=== PATIENT | female | born 1955 | race Caucasian/White ===

== ENCOUNTER 2019-01-23 08:46 | Day surgery (SDC) | payer OTHER ==
[~2019-01-23] VITALS: Ht 170.2 cm; Wt 89.9 kg
[2019-01-23] MEDS ORDERED: SODIUM CHLORIDE 0.9% 1,000 ML IV SCH (09:13)
[2019-01-23] MEDS ORDERED: CARI250T PO (09:18)
[2019-01-23] MEDS ORDERED: HYDR-3237 PO (09:18)
[2019-01-23] MEDS ORDERED: METH750T2 PO (09:19)
[2019-01-23] MEDS ORDERED: ASPI1TAB31 PO (09:19)
[2019-01-23 09:25] VITALS: BP 140/87
[2019-01-23] MEDS ORDERED: PLEASE ENTER HEIGHT AND WEIGHT MC SCH (10:00)
[2019-01-23] MEDS ORDERED: LIDOCAINE-MPF 1%, 5ML ONE (12:08)
== END 2019-01-23 16:00 | disposition home or self-care (01) ==
LOC: OUT 08:46 → EDSTATUS 12:30 → OUT 16:00
PROVIDERS: ATTEND Neurological Surgery
DX: M48.061 Spinal stenosis, lumbar region without neurogenic claudication (principal); F17.210 Nicotine dependence, cigarettes, uncomplicated; Z88.6 Allergy status to analgesic agent
CPT/HCPCS: 62284; 72050; 72110; 72132; J7030; Q9965

== ENCOUNTER 2019-01-30 08:30 | Inpatient (IN) | payer OTHER ==
[~2019-01-30] VITALS: Ht 170.2 cm; Wt 99.7 kg
[~2019-01-30 08:30] MED LIST: ASPI1TAB31 PO; CARI250T PO; HYDR-3237 PO; METH750T2 PO
[2019-01-30 09:04] LABS: BASOPHILS # (AUTO) 0.09 x10^3/uL (0-0.1); BASOPHILS % (AUTO) 1 % (0-1); EOSINOPHILS # (AUTO) 0.29 x10^3/uL (0-0.4); EOSINOPHILS % (AUTO) 4 % (1-7); LYMPHOCYTES # (AUTO) 2.75 x10^3/uL (1-3.4); LYMPHOCYTES % (AUTO) 36 % (22-44); MD NO; MEAN CORPUSCULAR HEMOGLOBIN 27.3 pg (27.0-34.8); MEAN CORPUSCULAR HGB CONC 32.3 g/dL (32.4-35.8); MEAN CORPUSCULAR VOLUME 84.6 fL (80-100); MEAN PLATELET VOLUME 10.1 fL (7.4-10.4); MONOCYTES # (AUTO) 0.73 x10^3/uL (0.2-0.8); MONOCYTES % (AUTO) 10 % (2-9); NEUTROPHILS # (AUTO) 3.79 x10^3/uL (1.8-6.8); NEUTROPHILS % (AUTO) 50 % (42-75); PLATELET COUNT 240 x10^3/uL (130-400); RED CELL DISTRIBUTION WIDTH 14.3 % (9.6-15.2)
[2019-01-30 09:12] LABS: INTERNATIONAL NORMALIZED RATIO 1.02 (0.93-1.1); PROTHROMBIN TIME 10.7 Seconds (9.6-11.5)
[2019-01-30 09:13] LABS: ANION GAP 6 mmol/L (5-15); CALCIUM 9.1 mg/dL (8.5-10.1); CHLORIDE 110 mmol/L (98-107); CREATININE 0.79 mg/dL (0.55-1.02)
[2019-01-30 09:24] VITALS: BP 137/91
[2019-02-01] MEDS ORDERED: LACTATED RINGERS 1,000 ML IV SCH (06:54)
[2019-02-01] MEDS ORDERED: GABAPENTIN 300 MG CAPSULE PO ONE (07:00)
[2019-02-01] MEDS ORDERED: ACETAMINOPHEN 500 MG TABLET PO ONE (07:00)
[2019-02-01] MEDS ORDERED: ONDANSETRON ODT 8 MG PO ONE (07:00)
[2019-02-01] MEDS ORDERED: LIDOCAINE-MPF 1%, 2ML INFIL ONE (07:30)
[2019-02-01] MEDS ORDERED: BUPIVACAINE/EPI 0.5% 1:200K ONE (07:47)
[2019-02-01] MEDS ORDERED: MICROFIBRILLAR COLLAGEN 1 GM TP ONE (07:47)
[2019-02-01] MEDS ORDERED: THROMBIN 20,000 UNIT VIAL TP ONE (07:48)
[2019-02-01] MEDS ORDERED: BACITRACIN 50,000 UNIT ONE (07:48)
[2019-02-01] MEDS ORDERED: MIDAZOLAM 1 MG/ML, 2ML ONE (08:18)
[2019-02-01] MEDS ORDERED: FENTANYL PF 250 MCG/5ML ONE (08:18)
[2019-02-01] MEDS ORDERED: PROPOFOL 50 ML ONE ×5 (08:18→13:26)
[2019-02-01] MEDS ORDERED: CEFAZOLIN 1,000 MG ONE ×2 (08:23)
[2019-02-01] MEDS ORDERED: DEXAMETHASONE 4 MG/ML, 1ML ONE (08:24)
[2019-02-01] MEDS ORDERED: PHENYLEPHRINE 10 MG/ML ONE (08:27)
[2019-02-01] MEDS ORDERED: PROPOFOL 10 MG/ML, 20ML ONE (08:27)
[2019-02-01] MEDS ORDERED: SUCCINYLCHOLINE 20 MG/ML, 10ML ONE (08:27)
[2019-02-01] MEDS ORDERED: LIDOCAINE-MPF 2% ,5ML ONE (08:27)
[2019-02-01] MEDS ORDERED: MEPERIDINE/PF 25MG/0.5ML IVPush PRN (09:00)
[2019-02-01] MEDS ORDERED: LORazepam 2 MG/ML, 1ML IVPush PRN (09:00)
[2019-02-01] MEDS ORDERED: OXYcodone 5 MG/5 ML ORAL.SOL UDC PO PRN (09:00)
[2019-02-01] MEDS ORDERED: ALBUTEROL/IPRATROPIUM 2.5MG/0.5MG, 3 ML NPPB PRN (09:00)
[2019-02-01] MEDS ORDERED: PROMETHAZINE 25 MG/ML, 1ML IV PRN (09:00)
[2019-02-01] MEDS ORDERED: hydrALAzine 20 MG/ML, 1ML IV PRN (09:00)
[2019-02-01] MEDS ORDERED: FENTANYL PF 100 MCG/2ML IV PRN (09:00)
[2019-02-01] MEDS ORDERED: LABETALOL 5MG/ML, 20ML IV PRN (09:00)
[2019-02-01] MEDS ORDERED: THROMBIN 5,000 UNIT VIAL TP ONE (09:29)
[2019-02-01] MEDS ORDERED: VANCOMYCIN 1,000 MG ONE (12:42)
[2019-02-01] MEDS ORDERED: VANCOMYCIN 1,000 MG IM ONE (13:08)
[2019-02-01] MEDS ORDERED: BACITRACIN OINT 500U/GM, 15 GM ONE (13:15)
[2019-02-01] MEDS ORDERED: FENTANYL PF 100 MCG/2ML ONE ×2 (13:34→14:39)
[2019-02-01] MEDS ORDERED: HYDROmorphone 2 MG/ML, 1ML ONE (14:39)
[2019-02-01] MEDS ORDERED: OXYcodone 5 MG/5 ML ORAL.SOL UDC ONE (14:39)
[2019-02-01] MEDS: HYDROmorphone 2 MG/ML, 1ML IVPush PRN ×3 (14:41→15:16)
[2019-02-01] MEDS ORDERED: HYDROmorphone PCA 30 MG/30 ML IV PRN (15:00)
[2019-02-01] MEDS ORDERED: METHOCARBAMOL 1,000 MG in DEXTROSE 5% 100 ML IV ONE ×2 (15:30→17:00)
[2019-02-01 16:10] VITALS: BP 114/65
[2019-02-01] MEDS ORDERED: PROMETHAZINE 25 MG/ML, 1ML IM PRN (17:00)
[2019-02-01] MEDS ORDERED: BISACODYL 10 MG SUPP PR PRN (17:00)
[2019-02-01] MEDS ORDERED: OXYcodone/APAP 5/325MG TABLET PO PRN (17:00)
[2019-02-01] MEDS ORDERED: MAGNESIUM HYDROXIDE 8%, 30ML UDC PO PRN (17:00)
[2019-02-01] MEDS ORDERED: HYDROmorphone 2MG TABLET PO PRN (17:00)
[2019-02-01] MEDS ORDERED: HYDROcodone/APAP 5/325 TABLET PO PRN (17:00)
[2019-02-01] MEDS ORDERED: DIPHENHYDRAMINE 50 MG/ML, 1ML IVPush PRN (17:00)
[2019-02-01] MEDS ORDERED: HYDROmorphone 2 MG/ML, 1ML IM PRN (17:00)
[2019-02-01] MEDS ORDERED: DIPHENHYDRAMINE 50 MG/ML, 1ML IM PRN (17:00)
[2019-02-01] MEDS ORDERED: ONDANSETRON 2MG/ML, 2ML IV PRN (17:00)
[2019-02-01] MEDS ORDERED: CYCLOBENZAPRINE 10 MG TABLET PO PRN (17:00)
[2019-02-01] MEDS ORDERED: DIPHENHYDRAMINE 50 MG CAPSULE PO PRN (17:00)
[2019-02-01] MEDS: NS + 20MEQ KCL 1,000 ML IV SCH (17:39)
[2019-02-01] MEDS: CEFAZOLIN PMX 2GM/50ML 50 ML IVPB SCH (18:29)
[2019-02-01 20:15] VITALS: BP 126/73
[2019-02-01] MEDS: GABAPENTIN 300 MG CAPSULE PO SCH (23:56)
[2019-02-02 00:23] VITALS: BP 102/61
[2019-02-02] MEDS ORDERED: METHOCARBAMOL 750 MG in DEXTROSE 5% 100 ML IV SCH (01:00)
[2019-02-02] MEDS: NS + 20MEQ KCL 1,000 ML IV SCH ×3 (03:00→20:26)
[2019-02-02] MEDS: CEFAZOLIN PMX 2GM/50ML 50 ML IVPB SCH (03:30)
[2019-02-02 03:52] VITALS: BP 108/67
[2019-02-02] MEDS: SENNA/DOCUSATE TABLET PO SCH (08:04)
[2019-02-02] MEDS: GABAPENTIN 300 MG CAPSULE PO SCH ×3 (08:05→20:26)
[2019-02-02 08:14] VITALS: BP 107/71
[2019-02-02] MEDS ORDERED: KETOROLAC 30 MG/1 ML IV ONE (09:30)
[2019-02-02] MEDS: METHOCARBAMOL 750 MG TABLET PO SCH ×2 (12:58→18:44)
[2019-02-02 13:35] VITALS: BP 105/59
[2019-02-02] MEDS: HYDROcodone/APAP 10/325 MG TABLET PO PRN ×3 (13:56→20:26)
[2019-02-02 18:58] VITALS: BP 104/58
[2019-02-03] MEDS: HYDROcodone/APAP 10/325 MG TABLET PO PRN ×6 (00:33→21:12)
[2019-02-03 00:49] VITALS: BP 99/64
[2019-02-03] MEDS: METHOCARBAMOL 750 MG TABLET PO SCH ×4 (01:40→19:42)
[2019-02-03 08:17] VITALS: BP 112/69
[2019-02-03] MEDS: SENNA/DOCUSATE TABLET PO SCH (08:38)
[2019-02-03] MEDS: MAGNESIUM HYDROXIDE 8%, 30ML UDC PO SCH (08:38)
[2019-02-03] MEDS: GABAPENTIN 300 MG CAPSULE PO SCH ×3 (08:38→21:12)
[2019-02-03] MEDS: NS + 20MEQ KCL 1,000 ML IV SCH ×2 (08:40→19:00)
[2019-02-03 11:44] LABS: BASOPHILS # (AUTO) 0.06 x10^3/uL (0-0.1); BASOPHILS % (AUTO) 1 % (0-1); EOSINOPHILS # (AUTO) 0.06 x10^3/uL (0-0.4); EOSINOPHILS % (AUTO) 1 % (1-7); LYMPHOCYTES # (AUTO) 1.99 x10^3/uL (1-3.4); LYMPHOCYTES % (AUTO) 21 % (22-44); MD NO; MEAN CORPUSCULAR HEMOGLOBIN 27.4 pg (27.0-34.8); MEAN CORPUSCULAR HGB CONC 32.3 g/dL (32.4-35.8); MEAN CORPUSCULAR VOLUME 84.7 fL (80-100); MEAN PLATELET VOLUME 9.7 fL (7.4-10.4); MONOCYTES # (AUTO) 1.09 x10^3/uL (0.2-0.8); MONOCYTES % (AUTO) 11 % (2-9); NEUTROPHILS # (AUTO) 6.49 x10^3/uL (1.8-6.8); NEUTROPHILS % (AUTO) 67 % (42-75); PLATELET COUNT 183 x10^3/uL (130-400); RED BLOOD COUNT 3.88 x10^6/uL (3.82-5.3); RED CELL DISTRIBUTION WIDTH 14.1 % (9.6-15.2)
[2019-02-03 13:16] VITALS: BP 113/73
[2019-02-03 20:00] VITALS: BP 118/72
[2019-02-04 00:35] VITALS: BP 114/71
[2019-02-04] MEDS: HYDROcodone/APAP 10/325 MG TABLET PO PRN ×3 (01:15→09:48)
[2019-02-04] MEDS: METHOCARBAMOL 750 MG TABLET PO SCH ×2 (01:15→08:37)
[2019-02-04] MEDS: NS + 20MEQ KCL 1,000 ML IV SCH (05:00)
[2019-02-04 08:06] VITALS: BP 107/71
[2019-02-04] MEDS: SENNA/DOCUSATE TABLET PO SCH (08:38)
[2019-02-04] MEDS: GABAPENTIN 300 MG CAPSULE PO SCH (08:38)
[2019-02-04] MEDS: MAGNESIUM HYDROXIDE 8%, 30ML UDC PO SCH (08:38)
[2019-02-04] MEDS ORDERED: METHOCARBAMOL 750 MG TABLET PO SCH (09:00)
[2019-02-04] MEDS ORDERED: HYDR-3307 PO (10:45)
[2019-02-04] MEDS ORDERED: METH750T87 PO (10:46)
[2019-02-04] MEDS ORDERED: MAGN400O7 PO (10:47)
[2019-02-04] MEDS ORDERED: methylPREDNISolone *ACETATE* 40 MG/ML IM ONE (11:30)
[2019-02-04] MEDS ORDERED: HYDROmorphone 1 MG/ML, 1ML INJ IV ONE (11:30)
== END 2019-02-04 12:20 | disposition home or self-care (01) | DRG 454 ==
LOC: EDSTATUS 08:30 → ORIP 02-01 06:43 → 4NOR 02-01 16:27 → DCLOUNGE 02-04 12:08
PROVIDERS: ADMIT Neurological Surgery; ATTEND Neurological Surgery
PROC: 0SG0071 Fusion of Lumbar Vertebral Joint with Autologous Tissue Substitute, Posterior Approach, Posterior Column, Open Approach (ICD-10-PCS; 2019-02-01)
PROC: 01NB0ZZ Release Lumbar Nerve, Open Approach (ICD-10-PCS; 2019-02-01)
PROC: 0SB20ZZ Excision of Lumbar Vertebral Disc, Open Approach (ICD-10-PCS; 2019-02-01)
PROC: 00NY0ZZ Release Lumbar Spinal Cord, Open Approach (ICD-10-PCS; 2019-02-01)
PROC: 0QP004Z Removal of Internal Fixation Device from Lumbar Vertebra, Open Approach (ICD-10-PCS; 2019-02-01)
PROC: 00PV0MZ Removal of Neurostimulator Lead from Spinal Cord, Open Approach (ICD-10-PCS; 2019-02-01)
PROC: 07DS3ZZ Extraction of Vertebral Bone Marrow, Percutaneous Approach (ICD-10-PCS; 2019-02-01)
PROC: 0JPT0MZ Removal of Stimulator Generator from Trunk Subcutaneous Tissue and Fascia, Open Approach (ICD-10-PCS; 2019-02-01)
PROC: 4A11X4G Monitoring of Peripheral Nervous Electrical Activity, Intraoperative, External Approach (ICD-10-PCS; 2019-02-01)
PROC: 0SG00AJ Fusion of Lumbar Vertebral Joint with Interbody Fusion Device, Posterior Approach, Anterior Column, Open Approach (ICD-10-PCS; principal; 2019-02-01 09:30)
DX: M48.061 Spinal stenosis, lumbar region without neurogenic claudication (principal); T85.113A Breakdown (mechanical) of implanted electronic neurostimulator, generator, initial encounter; M51.36 Other intervertebral disc degeneration, lumbar region; M40.36 Flatback syndrome, lumbar region; Y75.2 Prosthetic and other implants, materials and neurological devices associated with adverse incidents; G89.29 Other chronic pain; Y83.8 Other surgical procedures as the cause of abnormal reaction of the patient, or of later complication, without mention of misadventure at the time of the procedure; Z91.048 Other nonmedicinal substance allergy status; Z83.3 Family history of diabetes mellitus; Z80.9 Family history of malignant neoplasm, unspecified; Z82.49 Family history of ischemic heart disease and other diseases of the circulatory system; Z88.6 Allergy status to analgesic agent; Z87.891 Personal history of nicotine dependence; Z98.1 Arthrodesis status; Z79.899 Other long term (current) drug therapy; Y92.89 Other specified places as the place of occurrence of the external cause
CPT/HCPCS: 36415; 72072; 72100; 74018; J3490; 71046; 80048; 85025; 85610; 85730; 93005; C1713; G0378; J0690; J1100; J1170; J1885; J2250; J2405; J2704; J3010; J3370; J3480; Q0162; C1760; C1762; C1763; J0330; J1030; J2370; J2800

== ENCOUNTER 2019-04-25 10:24 | Outpatient (CLI) | payer OTHER | END 2019-04-25 23:59 | disposition home or self-care (01) | LOC: RAD 10:24 | PROVIDERS: ATTEND Neurological Surgery | DX: M48.061 Spinal stenosis, lumbar region without neurogenic claudication (principal); M51.36 Other intervertebral disc degeneration, lumbar region; Z98.1 Arthrodesis status | CPT/HCPCS: 72110 ==

== ENCOUNTER → 2020-06-04 | Outpatient (CLI) | payer OTHER ==
[~2020-06-04] MED LIST changes: +HYDR-3246 PO; +MAGN400O7 PO; +METH750T87 PO
== END | disposition home or self-care (01) ==
LOC: RAD 15:34
PROVIDERS: ATTEND Physician Assistant
DX: M51.36 Other intervertebral disc degeneration, lumbar region (principal); M48.061 Spinal stenosis, lumbar region without neurogenic claudication
CPT/HCPCS: 72082; 72110